=== PATIENT | female | born 1930 | race Caucasian/White ===

== ENCOUNTER 2019-02-25 04:14 | Emergency (ER) | payer OTHER ==
[~2019-02-25] VITALS: Ht 165.1 cm; Wt 65.8 kg
[2019-02-25 09:22] LABS: Urine Bacteria FEW /hpf (None Seen); Urine Blood Negative /uL (Negative); Urine Specific Gravity 1.007 (1.001-1.035); Urine WBC 16 /hpf (0 - 5)
[2019-02-25 11:11] LABS: Basophils # (auto) 0 uL; Basophils % (auto) 0.5 % (0.0-2.0); Eosinophils # (auto) 0 uL; Eosinophils % (auto) 0.5 % (0.0-7.0); Lymphocytes # (auto) 0.7 uL; Mean Corpuscular Hgb Conc. 34.2 g/dL (32.0-36.0); Mean Corpuscular Volume 99.3 fL (80.0-100.0); Monocytes # (auto) 0.7 uL; Monocytes % (auto) 13.1 % (0.0-12.0); Neutrophils # (auto) 4.1 uL; Neutrophils % (auto) 73.9 % (37.0-80.0); Platelet Count (auto) 187 10^3/uL (140-450); Red Blood Cells 4.13 10^6/uL (4.0-5.20); White Blood Cell 5.5 10^3/uL (4.4-10.8)
[2019-02-25] MEDS ORDERED: BACITRACIN TOP OINT 1 UD PKG TOP ONE (11:15)
[2019-02-25 11:29] LABS: BUN/Creatinine Ratio 15.3; Calcium 8.4 mg/dL (8.5-10.1); Magnesium 2.2 mg/dL (1.6-2.6); Potassium 3.8 mmol/L (3.5-5.1)
[2019-02-25 11:35] LABS: INR 2.37 (0.9-1.15); Partial Thromboplastin Time 46.7 sec (23.64-32.05)
[2019-02-25 12:48] VITALS: BP 156/79
== END 2019-02-25 12:50 | disposition home or self-care (01) ==
LOC: ER 04:14 → EDBD 04:14 → ER 12:50
DX: S00.83XA Contusion of other part of head, initial encounter (principal); W19.XXXA Unspecified fall, initial encounter; Y93.89 Activity, other specified; Y92.89 Other specified places as the place of occurrence of the external cause; Y99.8 Other external cause status; I48.91 Unspecified atrial fibrillation; E78.00 Pure hypercholesterolemia, unspecified; I10 Essential (primary) hypertension
CPT/HCPCS: 36415; 70450; 72125; 80048; 81001; 83735; 85025; 85610; 85730